=== PATIENT | female | born 1935 | race Caucasian/White ===

== ENCOUNTER 2019-05-04 09:21 | Inpatient (IN) ==
--- NOTE | 2019-05-04 10:08 | PROVIDER DOCUMENTATION ---
This chart was entered by Dora Gold Scribe, acting as scribe for Faisal Zavala MD. HPI-Musculoskeletal Pain/Inj - GENERAL Chief Complaint: Fall Stated Complaint: Fall Time Seen by Provider: 05/04/19 10:07 Source: patient - HX OF PRESENT ILLNESS-MUSKULOSKELTAL Nature of Presenting Problem: Pt is a 83 yof who presents to the ED via EMS with a complaint of a fall. Pt states that she fell yesterday while walking to the bathroom, and she was seen at [facility]. Pt states that she cannot walk. Pt complains of pain in her L Hip, L elbow, and L shoulder. Pt was diagnosed with a pelvic fracture at [facility] yesterday. Pt denies fever, nausea, and chills. Pt denies any additional injuries or falls. Quality of Pain: reports: aching Severity in ED: mild Onset/Duration: 24 hours ago Timing: still present, changing over time Modifying Factors: improves with: nothing Any recent injury?: Yes Locality of Occurance: Home Similar Symptoms Previously?: Yes Recently seen or treated by another doctor?: Yes - FALL INJURY Location of Pain/Injury: reports: upper extremity (L elbow L shoulder), pelvis (Left) Pain Radiation: reports: other (Pain in her L elbow radiates to her L shoulder) Reason for Fall: reports: unknown Symptoms prior to fall:: reports: dizzy/lightheaded - TRUNK INJURY Location of Injury(s)/Pain: reports: pelvis Context / Method of Injury: reports: fall Associated Symptoms: reports: other (Trouble walking) - HIP/PELVIS PAIN/INJURY Hip Pain Location: reports: hip (L), pelvis Pain Radiation: reports: no radiation Context / Method of Injury: reports: fall Associated Symptoms: reports: other (Trouble walking) - LOWER EXTREMITY PAIN/INJURY Lower Extremities Pain: hip: left Context / Method of Injury: reports: fell Associated Symptoms: reports: other (Trouble walking) - UPPER EXTREMITY PAIN/INJURY Extremities Pain Location: shoulder: left, arm: left, elbow: left Context / Method of Injury: reports: fell Review of Systems - Adult - REVIEW OF SYSTEMS - ADULT Constitutional: reports: see HPI Eyes: reports: no symptoms reported Ears, Nose, Mouth & Throat: reports: no symptoms reported Cardiovascular: reports: no symptoms reported Respiratory: reports: no symptoms reported Gastrointestinal: reports: no symptoms reported Genitourinary: reports: no symptoms reported Musculoskeletal: reports: see HPI, joint pain (L elbow L shoulder), other (L hip/pelvis) Integumentary: reports: no symptoms reported Neurological: reports: no symptoms reported Psychiatric: reports: no symptoms reported Endocrine: reports: no symptoms reported Hematologic/Lymphatic: reports: no symptoms reported Allergic/Immunologic: reports: no symptoms reported All Other Systems: Reviewed and Negative Past History - Adult - PAST MEDICAL HISTORY-ADULT Review of Records: reports: Nursing Assessment Review, Medications Reviewed Major Childhood Illnesses: reports: denies history Cardiovascular: reports: hyperlipidemia Genitourinary: reports: chronic UTI's - PRIOR SURGERIES/PROCEDURES Surgical/Procedure History: reports: hysterectomy, other (bladder sling) - IMMUNIZATION STATUS Childhood Immunizations: See Nurse Assessment Flu Vaccine: See Nurse Assessment - SOCIAL HISTORY Smoking: non-smoker Substance Use: none/never Living Situation: alone Physical Exam-Injury Related - Physical Exam-Injury Related Initial Vital Signs Reviewed: Yes General Appearance: alert, no apparent distress Eyes: PERRL/EOMI Head, Ears, Nose, Mouth & Throat: normocephalic/atraumatic, moist mucous membranes Neck: non-tender, full range of motion, supple. negative: ecchymosis Respiratory: chest non-tender, lungs clear, normal breath sounds. negative: rhonchi, wheezing Cardiovascular: normal peripheral pulses, regular rate, rhythm. negative: bradycardia, tachycardia Abdominal Exam: normal bowel sounds, non tender, soft. negative: guarding, rebound Extremity: tenderness (L elbow L hip/pelvis L shoulder). negative: pelvis stable (Pelvic fracture) Integumentary: normal color, warm/dry, ecchymosis (L Elbow) Neurologic: grossly normal Psych/Mental Status: normal mood/affect, normal thought content, normal thought process, oriented x 3 Progress - PLAN OF CARE/RESULTS Progress/Plan/Lab Results: Vital Signs - 8 hr 05/04/19 09:31 Temperature 97.6 F Pulse Rate 81 Respiratory Rate 18 Blood Pressure 160/75 O2 Sat by Pulse Oximetry 95 Orders Category Date Time Status Admit - [facility] Routine AdmDCTranf 05/04/19 10:03 Active Transfer/Admit Order [TRANSFER] Routine Transfer 05/04/19 10:03 Ordered Departure - Departure Date of Disposition Decision: 05/04/19 Time of Disposition Decision: 10:07 DIAGNOSIS: Pubic ramus fracture Disposition: ADMITTED INPATIENT 09 Certified Medical Emergency: Emergent Condition: Stable - Critical Care Note This patient required my direct & personal management of CC.: No Attestation - Physician/ ROCHELLE Attestation Patient care was provided by Advanced Practice Provider:: No The physician spent face to face time with patient:: Yes Advanced Practice Provider documentation review:: Supervising physician onsite and consulted in the evaluation and care of this patient. The physician did have a face to face encounter with the patient. This chart was documented by the indicated scribe, (Dora Gold Scribe) and accurately reflects the services I performed and decisions made by me, Faisal Zavala MD, as attested by the provider's signature.
[2019-05-04] MEDS ORDERED: ZOFRAN IV PRN (10:49)
[2019-05-04] MEDS ORDERED: MORPHINE IV PRN ×2 (10:49→11:15)
[2019-05-04] MEDS ORDERED: FLEXERIL PO ONE (11:15)
[2019-05-04] MEDS: COLACE PO SCH ×2 (11:56→20:05)
[2019-05-04 12:00] LABS: HEMATOCRIT 40.8 % (37.0-47.0); HEMOGLOBIN 13.2 g/dL (12.0-16.0); MCH 27.7 PG (27-31); MCHC 32.4 g/dL (33-37); MCV 85.5 FL (81-99); MPV 12.2 FL (7.4-10.4); RBC 4.77 XMIL (4.2-5.4); RDW 13.9 % (11.5-14.5); WBC 10.1 X1000 (4.8-10.8)
[2019-05-04 12:14] LABS: AGAP 11; ALBUMIN 4.1 g/dL (3.5-5.0); ALKALINE PHOSPHATASE 79 U/L (32-104); BUN 23 mg/dL (8-22); CALCIUM 9.3 mg/dL (8.8-10.2); CHLORIDE 101 mmol/L (98-107); COSMO 276; CREATININE 0.8 mg/dL (0.5-0.9); ESTIMATED GFR > 60; GLUCOSE 100 mg/dL (70-104); GOT 26 U/L (10-30); GPT 18 U/L (10-36); POTASSIUM 4.6 mmol/L (3.5-5.1); SODIUM 136 mmol/L (136-145); TCO2 24 mmol/L (25-35); TOTAL PROTEIN 6.7 g/dL (6.3-8.3)
[2019-05-04] MEDS: NORCO-7.5 PO PRN ×2 (12:26→18:02)
--- NOTE | 2019-05-04 13:50 | HISTORY AND PHYSICAL ---
ADDENDUM: The patient was seen and examined by myself. Full note dictated and discussed with nurse practitioner. The patient presented to the emergency department after having fallen. She actually was seen yesterday and asked to go home. Unfortunately, after going home she was unable to ambulate. She does have a fracture of her inferior and superior pubic rami. She has a history of high blood pressure. We are going to admit her to the hospital, place her on pain control, physical therapy, and we will follow. cc: Flako Hagan MD
--- NOTE | 2019-05-04 15:51 | HISTORY AND PHYSICAL ---
PRIMARY CARE PROVIDER: None. CHIEF COMPLAINT: Pain. HISTORY OF PRESENT ILLNESS: Ms Montgomery is an 83-year-old female with a past medical history of hypertension, GERD, hyperlipidemia, who came to [facility] ER yesterday after sustaining a fall at home. She was found to have a pubic ramus fracture, skin tear of the elbow and was sent home with p.o. tramadol and a followup with her primary care provider. She was brought in back to the ED today with her daughter. She is reporting that she cannot walk and she has pain in her right hip as well as some cramping in that hip area. There were no further falls or injuries that have been sustained so she will be admitted for intractable pain. Physical Therapy consult Stock Plan Administrator for rehab placement. PAST MEDICAL HISTORY: 1. Recent pubic ramus fracture, status post mechanical fall. 2. Hypertension. 3. Gastroesophageal reflux disease. 4. Hyperlipidemia. PAST SURGICAL HISTORY: Hysterectomy, bladder sling. SOCIAL HISTORY: She is a . She lives at home alone. She has children that check on her. No alcohol, tobacco, or illicit drug use. ALLERGIES: Penicillin, anaphylaxis. Sulfa, anaphylaxis. Levaquin unknown. HOME MEDICATIONS: Currently being compiled. CURRENT LABORATORY DATA: White count 10, hemoglobin and hematocrit 13 and 40, platelet count 202,000. Sodium 136, potassium 4.6, BUN 23, creatinine 0.8, blood glucose is 100, mag 2.1. PHYSICAL EXAMINATION: VITAL SIGNS: Temperature is 97.8 degrees, heart rate 78, respirations 18, blood pressure 165/65, O2 is 98% on room air. GENERAL: Ms. Montgomery is a cachectic 83-year-old female who is lying in the bed, complaining of right hip pain and cramping, but in no acute distress. HEENT: Atraumatic, normocephalic. PERRL. NECK: Supple. Trachea midline. CARDIOVASCULAR: S1, S2 appreciated. No murmurs, gallops, or rubs noted. RESPIRATORY: Lung sounds clear bilaterally. GI: Flat, soft, nontender, nondistended. Positive bowel sounds 4 quads. LOWER EXTREMITIES: Negative for edema. No clubbing. No cyanosis. NEUROLOGIC: She is awake, alert, oriented, answers questions appropriately. ASSESSMENT AND PLAN: 1. Status post mechanical fall with a pubic rami fracture. She was unable to ambulate at home after her discharge from the ED yesterday, so we will continue with pain regimen. Consult Physical Therapy, Stock Plan Administrator for rehab placement. 2. Hypertension. Continue home medications. 3. Gastroesophageal reflux disease. Continue proton pump inhibitor. 4. Hyperlipidemia. Will continue statin. 5. Further recommendation to follow physician evaluation, laboratory and diagnostic data. Dictated by JOSE Ramos for Flako Hagan MD cc: Flako Hagan MD
[2019-05-04] MEDS: ATARAX PO SCH ×2 (18:57→20:05)
[2019-05-04 20:02] LABS: BILIRUBIN URINE NEGATIVE (NEGATIVE); BLOOD URINE NEGATIVE (NEGATIVE); CLARITY CLEAR (CLEAR); COLOR YELLOW; GLUCOSE URINE NEGATIVE (NEGATIVE); KETONE URINE NEGATIVE (NEGATIVE); LEUKOCYTES URINE NEGATIVE (NEGATIVE); NITRITE URINE NEGATIVE (NEGATIVE); PROTEIN URINE NEGATIVE (NEGATIVE); SP GRAVITY URINE 1.005; UROBILINOGEN URINE NORMAL
[2019-05-04 20:03] LABS: URINE SOURCE CATH
[2019-05-04 20:04] LABS: URINE RBC <10 /HPF (<10); URINE WBC <10 /HPF (<10)
[2019-05-04 20:05] LABS: URINE BACTERIA NEGATIVE /HFP; URINE EPITHELIAL CELLS >10 /HPF (<10)
[2019-05-04 20:06] LABS: URINE CAST NONE SEEN /LPF; URINE CRYSTAL NONE SEEN /HPF; URINE YEAST NONE SEEN /HPF
[2019-05-05 06:45] LABS: AGAP 8; ALBUMIN 3.7 g/dL (3.5-5.0); ALKALINE PHOSPHATASE 73 U/L (32-104); BUN 21 mg/dL (8-22); CALCIUM 8.5 mg/dL (8.8-10.2); CHLORIDE 102 mmol/L (98-107); COSMO 269; CREATININE 0.8 mg/dL (0.5-0.9); ESTIMATED GFR > 60; GLUCOSE 90 mg/dL (70-104); GOT 24 U/L (10-30); GPT 14 U/L (10-36); POTASSIUM 4.4 mmol/L (3.5-5.1); SODIUM 133 mmol/L (136-145); TCO2 23 mmol/L (25-35); TOTAL PROTEIN 6.2 g/dL (6.3-8.3)
[2019-05-05 07:03] LABS: BASO# 0.04 X1000 (0.0-0.2); BASO% 0.3 % (0.0-0.8); EOS# 0.26 X1000 (0.0-0.7); EOS% 2.1 % (0.0-10.0); HEMATOCRIT 42.1 % (37.0-47.0); HEMOGLOBIN 13.5 g/dL (12.0-16.0); IMM GRAN# 0.04 X1000 (0.0-0.04); IMM GRAN% 0.3 % (0.0-0.5); LYMPH# 1.35 X1000 (1.2-3.4); MCH 27.8 PG (27-31); MCHC 32.1 g/dL (33-37); MCV 86.6 FL (81-99); MONO# 0.97 X1000 (0.11-0.59); MONO% 7.9 % (1.7-9.3); MPV 11.6 FL (7.4-10.4); NEUT# 9.56 X1000 (1.4-6.5); NEUT% 78.4 % (42.2-75.2); PLT 173 X1000 (130-400); RBC 4.86 XMIL (4.2-5.4); WBC 12.22 X1000 (4.8-10.8)
[2019-05-05] MEDS: NORCO-7.5 PO PRN (08:30)
[2019-05-05] MEDS: ANTIVERT PO SCH (08:32)
[2019-05-05] MEDS: BENTYL PO SCH (08:32)
[2019-05-05] MEDS: COLACE PO SCH ×2 (08:32→20:13)
[2019-05-05] MEDS: MIRALAX PO SCH (08:32)
[2019-05-05] MEDS: PRINIVIL PO SCH (08:32)
[2019-05-05] MEDS ORDERED: SYNTHROID PO SCH (09:00)
[2019-05-05] MEDS ORDERED: ATARAX PO SCH (09:00)
[2019-05-05] MEDS ORDERED: NS 1,000 ML IV SCH (13:45)
[2019-05-05] MEDS: TYLENOL PO PRN (15:38)
--- NOTE | 2019-05-05 16:38 | PROGRESS NOTE ---
DATE: 05/05/2019 SUBJECTIVE: Patient notes that she is feeling okay. Still having some pain from her recent fall and fracture. Denies any fevers or chills. PHYSICAL EXAMINATION: Vital Signs: Reviewed. Temperature 98 degrees, pulse 84, respiratory rate 18, BP 154/82. General: Patient is awake, currently in no respiratory distress. She does appear to be in pain any time she moves. Therefore, Meyers catheter is in place and draining well. HEENT: Normocephalic. Neck: Supple. Cardiovascular: Regular rate. No murmurs. Chest: Clear and nonlabored. Abdomen: Soft and nondistended. Extremities: She can move all extremities although her lower extremities or painful with movement. Neurologic: No focal changes. ASSESSMENT: 1. Multiple falls. 2. Pubic rami fracture. 3. Mild hyponatremia. 4. Hypertension. 5. Hyperlipidemia. PLAN: We will continue patient in the hospital. Continue pain control. Get physical therapy involved. Certainly expect that she will need rehab on discharge due to her inability to move on her own. cc: Flako Hagan MD
[2019-05-05] MEDS: ATARAX PO SCH (20:13)
[2019-05-06 06:32] LABS: HEMATOCRIT 38.4 % (37.0-47.0); HEMOGLOBIN 12.5 g/dL (12.0-16.0); MCHC 32.6 g/dL (33-37); MCV 86.1 FL (81-99); MPV 11.6 FL (7.4-10.4); RBC 4.46 XMIL (4.2-5.4); RDW 13.9 % (11.5-14.5); WBC 11.26 X1000 (4.8-10.8)
[2019-05-06 06:43] LABS: AGAP 8; BUN 18 mg/dL (8-22); CALCIUM 8.5 mg/dL (8.8-10.2); CHLORIDE 108 mmol/L (98-107); COSMO 278; CREATININE 0.7 mg/dL (0.5-0.9); ESTIMATED GFR > 60; GLUCOSE 105 mg/dL (70-104); POTASSIUM 4.6 mmol/L (3.5-5.1); SODIUM 138 mmol/L (136-145); TCO2 22 mmol/L (25-35)
[2019-05-06] MEDS: BENADRYL PO PRN ×2 (07:19→18:51)
[2019-05-06] MEDS: SYNTHROID PO SCH (07:19)
[2019-05-06] MEDS: MIRALAX PO SCH (08:46)
[2019-05-06] MEDS: COLACE PO SCH ×2 (08:47→20:42)
[2019-05-06] MEDS: ANTIVERT PO SCH (08:47)
[2019-05-06] MEDS: BENTYL PO SCH (08:47)
[2019-05-06] MEDS: PRINIVIL PO SCH (08:48)
--- NOTE | 2019-05-06 10:58 | Vascular Study Report ---
EXAM: Carotid Ultrasound HISTORY: AMS/Falls TECHNIQUE: Grayscale, duplex, and color Doppler evaluation was performed of the carotid arteries bilaterally. Standard protocol. COMPARISON: None. FINDINGS: There is moderate smooth atherosclerotic plaque. There are no velocity elevations to suggest hemodynamically significant carotid artery stenosis. ICA/CCA ratios are within normal limits. Bilateral vertebral arterial flow is antegrade. IMPRESSION: No evidence for hemodynamically significant carotid artery stenosis. Estimated stenosis is less than 50% bilaterally. Electronically signed by Janette Solis 05/06/2019 10:55 AM
[2019-05-06] MEDS: TYLENOL PO PRN (12:53)
[2019-05-06] MEDS: NORCO-7.5 PO PRN (16:01)
--- NOTE | 2019-05-06 17:04 | Diag Imaging Result Doc PS360 ---
EXAM: MRI BRAIN W/O CONTRAST HISTORY: AMS/Confusion/Falls TECHNIQUE: Multisequence, multiplanar images of the brain were obtained without contrast as per standard protocol. COMPARISON: 08/10/2018. FINDINGS: Images are degraded by patient motion. There are no extra-axial collections. Diffusion images show no evidence for acute infarct. There is no evidence for hemorrhage. No midline shift or mass effect. There is severe cerebral atrophy and extensive deep white matter T2 hyperintensities compatible with microvascular disease. IMPRESSION: Severe cerebral atrophy and microvascular disease. No evidence for acute infarction.. Electronically signed by Janette Solis 05/06/2019 5:02 PM
--- NOTE | 2019-05-06 17:13 | Diag Imaging Result Doc PS360 ---
EXAM: CHEST-PORTABLE HISTORY: Rehab Placement TECHNIQUE: Single view of the chest was performed portably. COMPARISON: 06/15/2016 FINDINGS: There is cardiomegaly and pulmonary emphysema. There is probably a left lower lobe infiltrate. There is fibrosis within the right upper lobe peripherally. Pulmonary vasculature is not congested. No effusion or pneumothorax is appreciated. IMPRESSION: Suspect left basilar infiltrate. Pulmonary emphysema and right upper lobe fibrosis. Electronically signed by Janette Solis 05/06/2019 5:11 PM
[2019-05-06] MEDS: ATARAX PO SCH (20:42)
--- NOTE | 2019-05-07 00:51 | PROGRESS NOTE ---
DATE: 05/06/2019 SUBJECTIVE: The patient herself has no new complaints. Her daughter notes that she has been confused and disoriented. Her speech has not been the same. She has been falling. Denies any focalized weakness. OBJECTIVE: Vital Signs: Temperature is 98 degrees, pulse of 90, respiratory rate 16, blood pressure 160/75. General: The patient is awake, currently she is in no respiratory distress. HEENT: Normocephalic. Neck: Supple. Cardiovascular: Regular rate. Chest: Clear. Abdomen: Soft, nondistended. Extremities: Moves all extremities. Neurologic: She appears awake and alert, although her daughter does note that she is easily confused, which is a new finding. ASSESSMENT: 1. Altered mental status likely a TIA. 2. Hyponatremia. 3. Pubic rami fracture, 4. Hypertension. PLAN: We are going to continue the patient in the hospital. Continue physical therapy. Certainly we will need to consider an MRI given her metabolic encephalopathy and the length of time. We will follow. Expect she will need to transition to rehab when bed is available. cc: Flako Hagan MD
[2019-05-07] MEDS: NORCO-7.5 PO PRN (03:13)
[2019-05-07 05:47] VITALS: BP 149/60
[2019-05-07] MEDS: COLACE PO SCH (09:44)
[2019-05-07] MEDS: BENTYL PO SCH (09:44)
[2019-05-07] MEDS: SYNTHROID PO SCH (09:44)
[2019-05-07] MEDS: MIRALAX PO SCH (09:45)
[2019-05-07] MEDS: ANTIVERT PO SCH (09:45)
[2019-05-07] MEDS: PRINIVIL PO SCH (09:45)
[2019-05-07] MEDS ORDERED: FLEET ENEMA PR ONE (11:41)
--- NOTE | 2019-05-07 11:43 | DISCHARGE SUMMARY ---
ADMISSION DATE: 05/04/2019 DISCHARGE DATE: 05/07/2019 PRIMARY CARE PHYSICIAN: Listed as none. ADMISSION DIAGNOSES: 1. Status post mechanical fall with pubic rami fracture. 2. Hypertension. 3. Gastroesophageal reflux disease. 4. Hyperlipidemia. DISCHARGE DIAGNOSES: 1. Altered mental status, likely a transient ischemic attack. 2. Hyponatremia, resolved. 3. Pubic rami fracture. 4. Hypertension. SUMMARY OF FINDINGS: This is an 83-year-old female who presented to the ER after sustaining a fall at home, and was found to have a pubic ramus fracture, a skin tear of her elbow, and had been sent home with p.o. tramadol, and to follow up with her primary care provider. She was brought back to the ER on the day of admission, stating that she could not walk and had pain in her right hip, as well as cramping in that hip area. No further falls or injuries were sustained at that time. She was admitted for further evaluation and treatment. She did drop her sodium on day 2 to 133. We hydrated, and it is back to normal at 138. We did do a brain MRI due to some confusion and altered mental status, and there was a thought that she may have had a stroke, but the impression showed severe cerebral atrophy and microvascular disease, but no evidence of acute infarction. We did a carotid Doppler study also that showed no evidence of hemodynamically significant carotid artery stenosis. Estimated stenosis less than 50% bilaterally. Chest x-ray showed suspected left basilar infiltrate, pulmonary emphysema, and right upper lobe fibrosis. Physical Therapy has been following the patient, and it is now felt that she can be discharged to rehab. DISCHARGE MEDICATIONS: Include Bentyl 10 mg p.o. daily, [place] 7.5 one p.o. every 4 hours p.r.n., hydroxyzine 10 mg p.o. at bedtime, Synthroid 50 mcg p.o. daily, lisinopril 5 mg p.o. daily, meclizine 25 mg p.o. daily, MiraLAX 17 grams p.o. daily. Will place her also on Omnicef 300 mg p.o. b.i.d. for 7 days. FOLLOWUP: She will follow up with her family physician once she has completed her rehab stay. TIME SPENT: A 35-minute discharge. Dictated by JOSE Acevedo for Bola Murphy MD cc: JOSE Acevedo MD Gregory S. Cheatham, MD
== END 2019-05-07 14:38 | DRG 536 ==
LOC: P.ED 09:21 → SUATTDRO 10:35 → P.MEDSURG 10:35
PROVIDERS: ADMIT Family Medicine; ATTEND Internal Medicine